=== PATIENT | female | born 1990 | race Two or more races ===

== ENCOUNTER 2017-09-21 17:38 | Inpatient (IN) | payer OTHER ==
[~2017-09-21] VITALS: Ht 50.8 cm; Wt 2.7 kg
[2017-09-21] MEDS ORDERED: PRENATAL TABLE1 EAC1 PO (22:46)
== END 2017-09-24 13:50 | disposition home or self-care (01) | DRG 766 ==
LOC: OBS/DEL 17:38 → LDR 20:20 → OB/GYN 20:20
PROVIDERS: Obstetrics & Gynecology
PROC: 0UL70ZZ Occlusion of Bilateral Fallopian Tubes, Open Approach (ICD-10-PCS; 2017-09-21)
PROC: BY4FZZZ Ultrasonography of Third Trimester, Single Fetus (ICD-10-PCS; 2017-09-21)
PROC: 4A1HXCZ Monitoring of Products of Conception, Cardiac Rate, External Approach (ICD-10-PCS; 2017-09-21)
PROC: 10D00Z1 Extraction of Products of Conception, Low, Open Approach (ICD-10-PCS; principal; 2017-09-21 20:00)
DX: O65.5 Obstructed labor due to abnormality of maternal pelvic organs (principal); O34.211 Maternal care for low transverse scar from previous cesarean delivery; O42.02 Full-term premature rupture of membranes, onset of labor within 24 hours of rupture; Z37.0 Single live birth; Z30.2 Encounter for sterilization; Z64.1 Problems related to multiparity; Z3A.37 37 weeks gestation of pregnancy